=== PATIENT | male | born 1945 | race Caucasian/White ===

== ENCOUNTER → 2016-12-14 | Day surgery (SDC) | payer MEDICARE, BC ==
[~2016-12-14] VITALS: Ht 185.4 cm; Wt 83.0 kg
[~2016-12-14] MED LIST: ALEVE220 MG PO; FLOMAX0.4 MG PO; GLUCOSAM-CHOND1 EACH PO; LEVAQUIN500 MG PO; PROBIOTIC1 EAC4 PO; TYLENOL WITH C1 EACH PO; TYLENOL325 MG PO
--- NOTE | ~2016-12-14 | OR ---
PATIENT'S NAME: ROSE MARY SERRANO [facility] AGE: 71 Y [address] ROOM: [place] [address] LOCATION: [facility] [place] ADMIT DATE: 12/14/2016 OR/Procedure Report DISCHARGE DATE: FAMILY PHYSICIAN: Andrew Eric MD ATTENDING PHYSICIAN: Neeraj Fernandez SURGEON: Neeraj Fernandez MD SUPERVISOR EXTRUDING DEPARTMENT: DATE OF PROCEDURE: 12/14/2016 PREOPERATIVE DIAGNOSIS: Adenocarcinoma of the prostate. POSTOPERATIVE DIAGNOSIS: Adenocarcinoma of the prostate. PROCEDURE PERFORMED: Transperineal ultrasound-guided implantation of palladium-103 seeds. RADIATION ONCOLOGIST: Dr. Barrera. ANESTHESIA: General. COMPLICATIONS: None. INDICATION FOR PROCEDURE: The patient is a 71-year-old male with adenocarcinoma of the prostate, [place] 7 (3+ 4) with a PSA of 11.6. The patient underwent bone and CT scans which were negative for metastatic disease. DETAILS OF PROCEDURE: After informed consent obtained patient taken to the operating room. A general anesthetic was applied. He was placed in the dorsal lithotomy position with a wedge cushion underneath the buttocks area. The ultrasound probe was assembled and the probe placed in the sled device. The probe was then placed directly in the rectum, and serial contours of prostate were taken at 5-mm intervals using axial imaging to generate a prostate volume of 43.2 mL. Sagittal imaging was then used to determine the length of the prostate in the anterior, mid, and posterior proportion of glands from base to apex. These figures were 29, 35, and 38 mm respectively. These figures were then used by radiation oncologist to perform dosimetry calculations, completing the number of palladium-103 seeds to implant as well as spacing between the seeds. The groin and perineal area were painted with Betadine. Template was attached to the sled device and pushed against the perineum. Next, the largest transverse image of the prostate was identified. [place] were then placed in the periphery at least 7 mm above the anterior rectal wall and least 1 cm apart. The entire periphery of the prostate was implanted in this manner. PATIENT'S NAME: ROSE MARY SERRANO [facility] AGE: 71 Y [address] ROOM: [place] [address] LOCATION: [facility] [place] ADMIT DATE: 12/14/2016 OR/Procedure Report DISCHARGE DATE: FAMILY PHYSICIAN: Andrew Eric MD ATTENDING PHYSICIAN: Neeraj Fernandez Once this was completed, imaging was switched to the sagittal plane. The tip of each individual needle was then advanced to the base of the gland at which point, the radiation oncologist distribute the palladium-103 seeds and removed the needle. This was repeated multiple times until all of the peripheral needles were implanted and removed. We then switched back to the transverse plane. Again using the largest transverse image, needles were then placed in the anterior of the gland approximately 1 cm from the periphery, 1 cm apart, and at least 5 mm from the urethra. We then switched back to the sagittal plane. The tip of each individual needle was brought to the base of the gland. The interior needle rows were implanted as described for the periphery. At the end of the case, a cystogram was performed which demonstrated good deposition of seeds throughout the gland with no free seeds within the bladder or urethra. The patient tolerated his procedure well and was transferred to recovery room in good condition. MD YING BARRERA/modl /[id number] CC: MD Harleen Parisi MD, PhD d: 12/15/16 0245 t: 12/17/16 1237, OPERATIVE SUMMARY
--- NOTE | ~2016-12-14 | RTPR ---
PATIENT'S NAME: STEPHANI TAYLOR [facility] AGE: 71 Y [address] ROOM: [place] [address] LOCATION: [facility] [place] ADMIT DATE: 12/14/2016 Oncology Report DISCHARGE DATE: FAMILY PHYSICIAN: Andrew Eric MD ATTENDING PHYSICIAN: Neeraj Fernandez RADIATION THERAPY PROCEDURE NOTE DATE OF SERVICE: 12/14/2016 PREOPERATIVE DIAGNOSIS: Carcinoma of the prostate. POSTOPERATIVE DIAGNOSIS: Carcinoma of the prostate. PROCEDURE: Transperineal ultrasound-guided implantation of palladium-103. RADIATION ONCOLOGIST: Florian Painting MD, PhD. UROLOGIST: Neeraj Fernandez MD. ANESTHESIA: General. COMPLICATIONS: None. OPERATIVE FINDINGS: Prostate volume of 43.2 mL. INDICATIONS: Mr. Stephani Taylor is a 71-year-old white male with a [place] of 3+4=7, PSA of 11.6, and clinical stage, stage IIA (T2a NX M0) adenocarcinoma of the prostate. DESCRIPTION OF PROCEDURE: The patient was brought into the operating room for insertion of palladium-103 seeds into the prostate gland for treatment of an adenocarcinoma with a [place] score of 7 and a PSA of 11.6. The patient was placed under general anesthesia and then placed in the dorsal lithotomy position with a wedge under PATIENT'S NAME: STEPHANI TAYLOR [facility] AGE: 71 Y [address] ROOM: [place] [address] LOCATION: [facility] [place] ADMIT DATE: 12/14/2016 Oncology Report DISCHARGE DATE: FAMILY PHYSICIAN: Andrew Eric MD ATTENDING PHYSICIAN: Neeraj Fernandez his buttocks to elevate his perineum. The patient's rectum was irrigated with sterile water and a Barron catheter was inserted into the patient's bladder and clamped. Transrectal ultrasound probe was introduced into the patient's rectum, and the prostate was measured using planimetry. The prostate volume was determined to be 43.2 mL. The patient was then prepped and draped in the usual sterile fashion. [place] were placed through a special perineal template under ultrasound guidance into the prostate gland. During each of these needle placements and each of the following needle placements, the transrectal ultrasound was used to guide the needles and determine the proper position and depth. Care was taken to avoid the patient's bladder, urethra and rectal mucosa. Fifteen needles were placed around the periphery of the patient's prostate gland. Seventy-five palladium 103 seeds were then deposited evenly through each of these needles using an applicator. The needles were then removed, and new needles were placed in the interior of the prostate gland. A total of 4 needles were placed. Twenty palladium 103 seeds were deposited through these needles into the prostate gland. The activity per seed was 2.15 U per seed. The total number of seeds implanted was 95. The total activity implanted was 204.3 U. Fluoroscopy was used at the end of the procedure. A cystogram was performed after all the seeds had been placed, and no stray seeds were found in the bladder or urethra. Survey was performed and activity at the patient's surface was 4 mrem/hour at the perineum, 8 mrem/hour and at 1 m 0.1 mrem/hour. The rest of the operating room was surveyed including the equipment table, the patient's Barron bag, the laundry and trash containers, and no stray sources of radiation were found. The patient tolerated the procedure well was transferred to the PACU without incident. He will be seen in 1 month's time for routine followup in both Urology and Radiation Oncology. He will have a CT Sim done at that time. The patient tolerated the procedure well. We thank you for allowing us to participate in his care. Sincerely, FLORIAN PAINTING MD, PHD FZL/modl /[id number] CC: Neeraj Fernandez MD PATIENT'S NAME: STEPHANI TAYLOR [facility] AGE: 71 Y [address] ROOM: [place], [place] [address] LOCATION: [facility] [place] ADMIT DATE: 12/14/2016 Oncology Report DISCHARGE DATE: FAMILY PHYSICIAN: Andrew Eric MD ATTENDING PHYSICIAN: Neeraj Fernandez MD d: 12/20/16 1509 t: 12/30/16 0932, CONSULTATION REPORT
== END | disposition disaster alternative care site (69) ==
LOC: GSDC 09:59 → EDSTATUS 10:30
PROC: 0VH001Z Insertion of Radioactive Element into Prostate, Open Approach (ICD-10-PCS; principal; 2016-12-14)
DX: C61 Malignant neoplasm of prostate (principal); K21.9 Gastro-esophageal reflux disease without esophagitis; E78.00 Pure hypercholesterolemia, unspecified; Z87.891 Personal history of nicotine dependence; Z98.890 Other specified postprocedural states
CPT/HCPCS: C1715; C2640; C2641; J1644; J2250; J3010; J7120